=== PATIENT | female | born 1965 | race Caucasian/White ===

== ENCOUNTER 2018-06-02 05:20 | Day surgery (SDC) | payer OTHER ==
[~2018-06-02 05:20] MED LIST: REMERON PO
[2018-06-02] MEDS ORDERED: CODE1TAB37 PO (10:03)
[2018-06-02] MEDS ORDERED: DOXYCYCLINE HY100 MG PO (10:03)
== END 2018-06-02 16:10 | disposition home or self-care (01) ==
LOC: CIR.AMB 05:20
DX: D25.0 Submucous leiomyoma of uterus (principal); N84.0 Polyp of corpus uteri